=== PATIENT | female | born 1970 | race Caucasian/White ===

== ENCOUNTER 2017-04-07 20:34 | Emergency (ER) | payer MEDICAID ==
[2017-04-07 21:18] LABS: BASOPHILS 0.3 % (0-2); EOSINOPHILS 1.1 % (0-7); HEMATOCRIT 45.5 % (36.0-48.0); HEMOGLOBIN 15.1 g/dL (12-16); IMMATURE GRANULOCYTES 0.2 % (0-5); MCH 30.4 pg (26.0-34.0); MCHC 33.2 g/dL (31.0-37.0); MCV 91.5 fL (80.0-100.0); MEAN PLATELET VOLUME 12.6 fL (7.4-10.4); MONOCYTES 6.3 % (2-11); NEUTROPHILS 73.1 % (40-80); PLATELET COUNT 224 10x3/uL (130-400); RBC 4.97 10x6/uL (4.00-5.40); RDW 14.8 % (11.5-14.5); WBC 14.9 10x3/uL (4.8-10.8)
[2017-04-07 21:38] LABS: ALBUMIN 3.6 g/dL (3.4-5.0); ALKALINE PHOSPHATASE 96 U/L (46-116); ALT (SGPT) 37 U/L (10-68); CALC OSMOLALITY 276 mosm/kg (275-300); CALCIUM 8.2 mg/dL (8.5-10.1); CARBON DIOXIDE 22.4 mmol/L (21.0-32.0); CHLORIDE - SERUM 104 mmol/L (98-107); CREATININE - SERUM 0.7 mg/dL (0.6-1.3); GLUCOSE 102 mg/dL (74-106); POTASSIUM - SERUM 3.3 mmol/L (3.5-5.1); PROTEIN - SERUM 7.4 g/dL (6.4-8.2); SODIUM 140 mmol/L (136-145); UREA NITROGEN 6 mg/dL (7-18); eGFR NON AFRICAN AMERICAN > 90 mL/min (90-120)
[2017-04-07 21:41] LABS: BILIRUBIN - TOTAL 0.09 mg/dL (0.2-1.3)
[2017-04-07 22:06] LABS: MAGNESIUM - SERUM 1.8 mg/dL (1.8-2.4)
== END 2017-04-08 07:35 | disposition home or self-care (01) ==
LOC: D.ER 20:34
PROVIDERS: Emergency Medicine
DX: R45.851 Suicidal ideations (principal)

== ENCOUNTER 2018-07-06 08:59 | Emergency (ER) | payer MEDICAID ==
[~2018-07-06] VITALS: Ht 170.2 cm; Wt 65.9 kg
[2018-07-06 09:03] VITALS: Ht 170.2 cm; Wt 65.9 kg
[2018-07-06] MEDS ORDERED: PLAVIX75 MG PO (09:05)
[2018-07-06] MEDS ORDERED: SEROQUEL50 MG PO (09:05)
[2018-07-06] MEDS ORDERED: ELIQUIS5 MG PO (09:05)
[2018-07-06] MEDS ORDERED: HYDROCODON-ACE1 EA10 PO (09:06)
[2018-07-06] MEDS ORDERED: TAMIFLU75 MG PO (09:22)
[2018-07-06 09:44] VITALS: BP 113/79
== END 2018-07-06 09:42 | disposition home or self-care (01) ==
LOC: D.ER 08:59
DX: J11.1 Influenza due to unidentified influenza virus with other respiratory manifestations (principal); M79.18 Myalgia, other site

== ENCOUNTER 2018-07-17 18:41 | Emergency (ER) | payer MEDICAID ==
[~2018-07-17] VITALS: Ht 170.2 cm; Wt 69.5 kg
[~2018-07-17 18:41] MED LIST: ELIQUIS5 MG PO; HYDROCODON-ACE1 EA10 PO; PLAVIX75 MG PO; SEROQUEL50 MG PO; TAMIFLU75 MG PO
[2018-07-17 18:45] VITALS: Ht 170.2 cm; Wt 69.5 kg
[2018-07-17] MEDS ORDERED: CLEOCIN HCL300 MG PO (20:22)
[2018-07-17 20:32] VITALS: BP 97/54
== END 2018-07-17 20:33 | disposition home or self-care (01) ==
LOC: D.ER 18:41
DX: L76.82 Other postprocedural complications of skin and subcutaneous tissue (principal); L03.031 Cellulitis of right toe

== ENCOUNTER 2018-11-24 14:42 | Emergency (ER) | payer MEDICARE ==
[~2018-11-24] VITALS: Ht 170.2 cm; Wt 61.1 kg
[~2018-11-24 14:42] MED LIST changes: +CLEOCIN HCL300 MG PO
[2018-11-24 14:48] VITALS: Ht 170.2 cm; Wt 61.1 kg
--- NOTE | 2018-11-24 16:23 | NUR ---
PT REFUSED ASSESSMENT. PT IS VERY ARGUMENTATIVE AND REFUSES TO LISTEN TO EDUCATION. ATTENDING NOTIFIED.
[2018-11-24 17:16] LABS: BASOPHILS 0.5 % (0-2); EOSINOPHILS 3.7 % (0-7); HEMATOCRIT 45.9 % (36.0-48.0); HEMOGLOBIN 15.3 g/dL (12-16); LYMPHOCYTES 43.7 % (15-50); MCH 27.9 pg (26.0-34.0); MCHC 33.3 g/dL (31.0-37.0); MCV 83.6 fL (80.0-100.0); MEAN PLATELET VOLUME 11.4 fL (7.4-10.4); NEUTROPHILS 47.1 % (40-80); RBC 5.49 10x6/uL (4.00-5.40); RDW 17.7 % (11.5-14.5); WBC 7.8 10x3/uL (4.8-10.8)
[2018-11-24 17:32] LABS: PLATELET COUNT 269 10x3/uL (130-400)
[2018-11-24 18:04] LABS: ALBUMIN 3.9 g/dL (3.4-5.0); ALKALINE PHOSPHATASE 104 U/L (46-116); ALT (SGPT) 19 U/L (10-68); BILIRUBIN - TOTAL 0.22 mg/dL (0.2-1.3); CALC OSMOLALITY 277 mosm/kg (275-300); CALCIUM 8.5 mg/dL (8.5-10.1); CARBON DIOXIDE 21.2 mmol/L (21.0-32.0); CHLORIDE - SERUM 103 mmol/L (98-107); CREATININE - SERUM 0.7 mg/dL (0.6-1.3); GLUCOSE 71 mg/dL (74-106); MAGNESIUM - SERUM 1.8 mg/dL (1.8-2.4); PROTEIN - SERUM 7.4 g/dL (6.4-8.2); SODIUM 141 mmol/L (136-145); UREA NITROGEN 10 mg/dL (7-18); eGFR NON AFRICAN AMERICAN > 90 mL/min (90-120)
[2018-11-24 18:08] LABS: UDS - AMPHET NEGATIVE QUAL (NEGATIVE); UDS - BARB NEGATIVE QUAL (NEGATIVE); UDS - BENZO NEGATIVE QUAL (NEGATIVE); UDS - COCAINE NEGATIVE QUAL (NEGATIVE); UDS - OPIATE NEGATIVE QUAL (NEGATIVE); UDS - PCP NEGATIVE QUAL (NEGATIVE); UDS - THC POSITIVE QUAL (NEGATIVE)
[2018-11-24 18:15] LABS: APPEARANCE CLEAR (CLEAR); BILIRUBIN NEGATIVE (NEGATIVE); COLOR YELLOW (YELLOW); GLUCOSE NEGATIVE (NEGATIVE); KETONE SMALL mg/dL (NEGATIVE); NITRITE NEGATIVE (NEGATIVE); PROTEIN NEGATIVE (NEGATIVE); UROBILINOGEN NORMAL (NORMAL)
[2018-11-24 18:17] LABS: BACTERIA MODERATE /hpf (NONE SEEN); EPITHELIAL CELLS 0-5 /hpf (0-5); RED CELLS - URINE 0-5 /hpf (0-5); WHITE CELLS - URINE 0-5 /hpf (0-5)
--- NOTE | 2018-11-24 19:23 | NUR ---
DR. HENSON NOTIFIED AND REVIEWED PT'S BEHAVIOR AND ASSESSMENT RESULTS. PT IS A LOW RISK PER DR. HENSON. DR. HENSON STATED TO GIVE RESOURCES TO PT AT TIME OF DISCHARGE. NO FURTHER ORDERS AT THIS TIME. RESOURCES REVIEWED WITH PT AND SHE VERBALIZED UNDERSTANDING.
--- NOTE | 2018-11-24 23:57 | NUR ---
DR MARTELL NOTIFIED AND SITTER ORDERED, SITTER AT BEDSIDE, NOTIFIED CHARGE NURSE AND ATTENDING IN REGARDS TO ASSESSMENT FINDINGS, RESOURCES GIVEN TO PT AND SAFETY PLAN INITIATED.
[2018-11-25 02:43] VITALS: BP 110/70
== END 2018-11-25 02:43 | disposition short-term general hospital (02) ==
LOC: D.ER 14:42
PROVIDERS: Emergency Medicine
DX: T43.212A Poisoning by selective serotonin and norepinephrine reuptake inhibitors, intentional self-harm, initial encounter (principal); F10.10 Alcohol abuse, uncomplicated; R45.851 Suicidal ideations; N39.0 Urinary tract infection, site not specified; F17.210 Nicotine dependence, cigarettes, uncomplicated; J44.9 Chronic obstructive pulmonary disease, unspecified; F32.9 Major depressive disorder, single episode, unspecified

== ENCOUNTER 2019-06-09 16:56 | Emergency (ER) | payer MEDICARE, MEDICAID ==
[~2019-06-09] VITALS: Ht 170.2 cm; Wt 65.9 kg
[2019-06-09 16:58] VITALS: Ht 170.2 cm; Wt 65.9 kg
[2019-06-09 17:25] LABS: BASOPHILS 0.5 % (0-2); EOSINOPHILS 3.6 % (0-7); HEMATOCRIT 32.2 % (36.0-48.0); HEMOGLOBIN 10.1 g/dL (12-16); IMMATURE GRANULOCYTES 0.2 % (0-5); LYMPHOCYTES 23.8 % (15-50); MCH 29.2 pg (26.0-34.0); MCHC 31.4 g/dL (31.0-37.0); MCV 93.1 fL (80.0-100.0); MEAN PLATELET VOLUME 10.6 fL (7.4-10.4); MONOCYTES 7.7 % (2-11); NEUTROPHILS 64.2 % (40-80); RBC 3.46 10x6/uL (4.00-5.40); RDW 14.1 % (11.5-14.5); WBC 10.6 10x3/uL (4.8-10.8)
[2019-06-09 17:26] LABS: PLATELET COUNT 548 10x3/uL (130-400)
[2019-06-09 17:37] LABS: CALC OSMOLALITY 279 mosm/kg (275-300); CALCIUM 8.9 mg/dL (8.5-10.1); CARBON DIOXIDE 27.9 mmol/L (21.0-32.0); CHLORIDE - SERUM 106 mmol/L (98-107); CREATININE - SERUM 0.8 mg/dL (0.6-1.3); GLUCOSE 89 mg/dL (74-106); POTASSIUM - SERUM 3.9 mmol/L (3.5-5.1); SODIUM 142 mmol/L (136-145); UREA NITROGEN 8 mg/dL (7-18); eGFR NON AFRICAN AMERICAN 82 mL/min (90-120)
[2019-06-09 17:43] LABS: ALBUMIN 3.2 g/dL (3.4-5.0); ALKALINE PHOSPHATASE 80 U/L (30-120); ALT (SGPT) 25 U/L (10-68); BILIRUBIN - TOTAL 0.17 mg/dL (0.2-1.3); C-REACTIVE PROTEIN 2.6 mg/dL (0.0-0.9); PROTEIN - SERUM 7.4 g/dL (6.4-8.2)
[2019-06-09 20:00] VITALS: BP 115/65
== END 2019-06-09 20:00 | disposition other institution (70) ==
LOC: D.ER 16:56
PROVIDERS: Family Medicine
DX: L03.115 Cellulitis of right lower limb (principal); Z89.511 Acquired absence of right leg below knee; T81.9XXA Unspecified complication of procedure, initial encounter; J44.9 Chronic obstructive pulmonary disease, unspecified

== ENCOUNTER 2020-02-07 16:13 | Emergency (ER) | payer MEDICARE, MEDICAID ==
[~2020-02-07] VITALS: Ht 170.2 cm; Wt 63.6 kg
[2020-02-07 16:16] VITALS: Ht 170.2 cm; Wt 63.6 kg
[2020-02-07 17:17] LABS: BASOPHILS 0.6 % (0-2); EOSINOPHILS 1.6 % (0-7); HEMATOCRIT 47.4 % (36.0-48.0); HEMOGLOBIN 15.9 g/dL (12-16); IMMATURE GRANULOCYTES 0.3 % (0-5); LYMPHOCYTES 28.6 % (15-50); MCH 29.6 pg (26.0-34.0); MCHC 33.5 g/dL (31.0-37.0); MCV 88.3 fL (80.0-100.0); MEAN PLATELET VOLUME 12.1 fL (7.4-10.4); MONOCYTES 7.4 % (2-11); NEUTROPHILS 61.5 % (40-80); RBC 5.37 10x6/uL (4.00-5.40); RDW 14.7 % (11.5-14.5); WBC 12.2 10x3/uL (4.8-10.8)
[2020-02-07 17:23] LABS: BACTERIA MODERATE HPF (NONE SEEN); BILIRUBIN NEGATIVE (NEGATIVE); EPITHELIAL CELLS 0-5 /hpf (0-5); KETONE NEGATIVE (NEGATIVE); NITRITE NEGATIVE (NEGATIVE); UROBILINOGEN NORMAL mg/dL (< 2)
[2020-02-07 17:24] LABS: PLATELET COUNT 227 10x3/uL (130-400)
[2020-02-07 17:29] LABS: CALC OSMOLALITY 277 mosm/kg (275-300); CALCIUM 9.3 mg/dL (8.5-10.1); CARBON DIOXIDE 24.9 mmol/L (21.0-32.0); CHLORIDE - SERUM 103 mmol/L (98-107); CREATININE - SERUM 0.8 mg/dL (0.6-1.3); GLUCOSE 90 mg/dL (74-106); SODIUM 139 mmol/L (136-145); UREA NITROGEN 12 mg/dL (7-18); eGFR NON AFRICAN AMERICAN 81 mL/min (90-120)
[2020-02-07 17:34] LABS: UDS - AMPHET NEGATIVE QUAL (NEGATIVE); UDS - BARB NEGATIVE QUAL (NEGATIVE); UDS - BENZO NEGATIVE QUAL (NEGATIVE); UDS - COCAINE NEGATIVE QUAL (NEGATIVE); UDS - OPIATE NEGATIVE QUAL (NEGATIVE); UDS - PCP NEGATIVE QUAL (NEGATIVE); UDS - THC POSITIVE QUAL (NEGATIVE)
[2020-02-07 17:39] LABS: ALBUMIN 4.1 g/dL (3.4-5.0); ALKALINE PHOSPHATASE 115 U/L (30-120); ALT (SGPT) 19 U/L (10-68); AMYLASE - SERUM 75 U/L (25-115); BILIRUBIN - TOTAL 0.16 mg/dL (0.2-1.3); LIPASE 131 U/L (73-393); PROTEIN - SERUM 8.5 g/dL (6.4-8.2); TROPONIN-I < 0.017 ng/mL (0.000-0.060)
[2020-02-07] MEDS ORDERED: HYDROCODON-ACE1 EAC7 PO (18:30)
[2020-02-07] MEDS ORDERED: BACTRIM DS TAB1 EAC1 PO (18:30)
[2020-02-07 18:44] VITALS: BP 119/76
== END 2020-02-07 18:46 | disposition home or self-care (01) ==
LOC: D.ER 16:13
PROVIDERS: Emergency Medicine
DX: N12 Tubulo-interstitial nephritis, not specified as acute or chronic (principal); J44.9 Chronic obstructive pulmonary disease, unspecified

== ENCOUNTER 2020-07-12 15:58 | Inpatient (IN) | payer MEDICARE, MEDICAID ==
[~2020-07-12] VITALS: Ht 170.2 cm; Wt 65.4 kg
--- NOTE | ~2020-07-12 | HEMODYNAMI ---
PATIENT:LEIDA CASEY MEDICAL RECORD: [id number] : 74 [id number] ADMISSION DATE: 07/12/20 Generatedon:110:28 Patient name: LEIDA CASEY Patient #: [id number] SSN: D OB: 1970 Date of study: 07/13/2020 Page: Of Hemodynamic Procedure Report Patient Data Patient Demographics Procedure consent was obtained First Name: LEIDA Gender: Female Last Name: CARMELA : 1970 Middle Initial: S Age: 49 year(s) Patient #: [id number] Race: Unknown Additional ID: [id number] Contact details Address: [address] [place] [address] TRAIL State: [place] City: [facility] Zip code: [address] Past Medical History Allergies Allergen Reaction Date Comments Reported Other allergy 07/13/2020 MORPHINE, CODEINE Admission Admission Data Admission Date: 07/12/2020 Admission Time: 19:59 Room #: D.2128 Lab Results Lab Result Date: 07/13/2020 Lab Result Time: 0:00 Biochemistry Name Units Result Min Max BUN mg/dl 11 --(-*--)-- 7 18 Creatinine mg/dl 0.7 --(*---)-- 0.6 1.3 eGFR ml/min 90 --(*---)-- 90 120 NONAFRICAN CBC Name Units Result Min Max Hematocrit % 35.5 *-(----)-- 42 54 Hemoglobin g/dl 11.8 *-(----)-- 13.5 17.5 Procedure Procedure Types Cath Procedure Diagnostic Procedure [facility] w/Coronaries Procedure Description Procedure Date Procedure Date: 07/13/2020 Procedure Start Time: 10:00 Procedure End Time: 10:25 Procedure Staff Name Function Alvaro Ornelas MD Performing Physician Carissa Alcazar RT Monitor Cherrie Gaffney RT Scrub Lorrie Leo RN Nurse Darci Quinones CRNA Additional personnel Procedure Data Cath Procedure Fluoroscopy Diagnostic fluoroscopy Total fluoroscopy Time: 1.9 time: 1.9 min min Diagnostic fluoroscopy Total fluoroscopy dose: 276 dose: 276 mGy mGy Contrast Material Contrast Material Type Amount (ml) Isovue 300 54 Entry Location Entry Primary Successful Side Size Upsize Upsize Entry Closure Succes sful Closure Location (Fr) 1 (Fr) 2 (Fr) Remarks Device Remarks Femoral Left 6 Fr Exoseal artery Short Estimated blood loss: 5 ml Diagnostic catheters Device Type Used For End Catheter Placement MULTIPACK JL 4.0 5Fr Procedure catheter MULTIPACK 3DRC 5Fr Procedure catheter MULTIPACK Pigtail 5 Fr Procedure catheter Procedure Complications No complications Procedure Medications Medication Administration Route Dosage Oxygen etCO2 Nasal cannula 2 l/min Lidocaine 2% added to field 20 Heparin Flush Bag added to field 2 bags (1000units/500ml NS) 0.9% NaCl I.V. 100 ml/hr Versed I.V. 2 mg Fentanyl I.V. 100 mcg Versed I.V. 2 mg Fentanyl I.V. 100 mcg Versed I.V. 2 mg Fentanyl I.V. 100 mcg Versed I.V. 2 mg Benadryl I.V. 50 mg Refer to Anesthesia Notes for Sedation Medications Hemodynamics Rest HGB: 11.8 (g/dl) Heart Rate: 46 (bpm) Pressure Samples Time Site Value (mmHg) Purpose Heart Use Rate(bpm) 10:18 LV 90/9,18 Snapshot 66 Gradients Valve Time Site Site Mean SEP/DFP Peak To Heart Use 1 2 (mmHg) (sec/min) Peak Rate (mmHg) (bpm) Aortic 10:19 LV AO 65 Snapshots Pre Cath Intra NCS Post Cath Vital Signs Time Heart Resp SPO2 etCO2 NIBP Rhythm Pain Sedation Rate (ipm) (%) (mmHg) (mmHg) Status Level (bpm) 9:48:26 50 17 99 27 104/46(67) NSR 0 (11) 10(A) , No pain 9:53:09 51 29 92 26.3 121/48(72) NSR 0 (11) 10(A) , No pain 9:57:15 49 19 87 24.7 110/95(99) NSR 0 (11) 10(A) , No pain 10:02:20 59 22 96 26.3 84/40(55) NSR 0 (11) 10(A) , No pain 10:07:31 56 18 92 26.3 88/63(83) NSR 0 (11) 10(A) , No pain 10:11:33 61 20 96 19.5 86/55(70) NSR 0 (11) 10(A) , No pain 10:15:37 62 19 98 24 90/52(70) NSR 0 (11) 10(A) , No pain 10:19:43 65 18 98 29.3 89/50(68) NSR 0 (11) 10(A) , No pain 10:23:49 59 15 98 29.3 86/47(69) NSR 0 (11) 10(A) , No pain Medications Time Medication Route Dose Verified Delivered Reason Notes Eff ectiveness by by 9:50:27 Benadryl I.V. 50 mg Alvaro Buffie used for Johnson Leo RN procedure 9:50:48 Oxygen etCO2 2 Alvaro Buffie used for Nasal l/min Johnson Leo RN procedure cannula 9:51:46 Lidocaine 2% added 20ml Alvaro Alvaro for local to vial Johnson Ornelas MD anesthetic field 9:51:52 Heparin Flush added 2 Alvaro Alvaro used for Bag to bags Johnson Ornelas MD procedure (1000units/500ml field NS) 9:51:59 0.9% NaCl I.V. 100 Alvaro Buffie Per ml/hr Johnson Leo RN physician 9:57:58 Versed I.V. 2 mg Alvaro Buffie for Johnson Leo RN sedation 9:58:03 Fentanyl I.V. 100 Alvaro Buffie for mcg Johnson Leo RN sedation 10:03:03 Versed I.V. 2 mg Alvaro Buffie for Johnson Leo RN sedation 10:03:07 Fentanyl I.V. 100 Alvaro Buffie for mcg Johnson Leo RN sedation 10:07:29 Versed I.V. 2 mg Alvaro Buffie for Johnson Leo RN sedation 10:07:32 Fentanyl I.V. 100 Alvaro Buffie for mcg Johnson Leo RN sedation 10:10:05 Versed I.V. 2 mg Alvaro Buffie for Johnson Leo RN sedation 10:15:07 Refer to Alvaro Buffie Anesthesia Notes Ornelas MD Leo RN for Sedation Medications Procedure Log Time Note 9:21:11 Informed consent obtained and on chart 9:21:44 Procedure Status Urgent Heart Cath (IP). 9:21:45 Time tracking: Regular hours (M-F 7:00 - 5:00) 9:21:48 Plan of Care:Hemodynamics will remain stable., Cardiac rhythm will remain stable., Comfort level will be maintained., Respiratory function will remain adequate., Patient/ family verbilizes understanding of procedure., Procedure tolerated without complication., Recovers from procedure without complications.. 9:21:51 H&P Date Dictated: 07/13/2020 ER History on chart.. 9:26:39 Patient allergic to Other allergyMORPHINE, CODEINE 9:29:48 Carissa Alcazar RT(R) sent for patient. Start room use. 9:47:14 Patient received from OrbFlex II to CCL 1 Alert and oriented. Tansferred to table in Supine position. 9:47:16 Warm blankets applied, and hever hugger turned on for patient comfort. 9:47:16 Correct patient and procedure confirmed by team. 9:47:17 ECG and BP/O2 sat monitors applied to patient. 9:47:19 Vital chart was started 9:47:22 Baseline sample Acquired. 9:47:25 Rhythm: sinus bradycardia 9:47:26 Full Disclosure recording started 9:47:26 Pre-procedure instructions explained to patient. 9:47:27 Pre-op teaching completed and patient verbalized understanding. 9:47:28 Family unavailable. 9:47:32 Patient NPO since Midnight. 9:47:35 Is patient on blood thinner?Yes 9:47:39 ACC The patient was administered the following blood thiners within the last 24 hours: ACCPlavix, Eliquis 9:47:54 Patient not . Patient has had hysterectomy. 9:47:56 Previous problem with sedation/anesthesia? No ? 9:47:57 Snore? Yes 9:47:58 Sleep apnea? No 9:47:59 Deviated septum? No 9:47:59 Opens mouth fully? Yes 9:48:00 Sticks out tongue? Yes 9:48:07 Airway obstruction? Yes ASTHMA, COPD 9:48:10 Pre procedure: right dorsailis pedis pulse 1+ Palpable, but thready & weak; easily obliterated 9:48:11 Dentures? No ? 9:48:21 IV patent on arrival in right antecubital with 0.9% NaCl at [facility]. 9:48:58 Lab Result : BUN 11 mg/dl 9:48:58 Lab Result : eGFR NONAFRICAN 90 ml/min 9:48:58 Lab Result : Creatinine 0.7 mg/dl 9:48:58 Lab Result : Hemoglobin 11.8 g/dl 9:48:58 Lab Result : Hematocrit 35.5 % 9:49:04 Lab results completed and on chart. 9:49:09 Right groin area was prepped with chlora-prep and draped in sterile fashion 9:49:11 Alarms reviewed by R. N. 9:49:11 Sharps counted by scrub and verified by R.N. 9:49:13 Use device set Femoral Dx 9:49:14 ACIST Syringe (78796) opened to sterile field. 9:49:15 Bag Decanter (2002S) opened to sterile field. 9:49:16 ACIST Hand Control (05504) opened to sterile field. 9:49:16 ACIST Manifold (91456) opened to sterile field. 9:49:18 Tegaderm 4 x 4 (1626W) opened to sterile field. 9:49:19 Medline Cath Pack ([id number]) opened to sterile field. 9:49:20 DIAGNOSTIC Multipack 5Fr catheter set (TG1612) opened to sterile field. 9:49:20 SHEATH 5FR [place] (IXP588) opened to sterile field. 9:49:21 EMERALD Guide Wire (057-226) opened to sterile field. 9:50:27 Benadryl 50 mg I.V. was administered by Lorrie Leo RN; used for procedure; Verbal order read back and verified. 9:50:48 Oxygen 2 l/min etCO2 Nasal cannula was administered by Lorrie Leo RN; used for procedure; Verbal order read back and verified. 9:51:46 Lidocaine 2% 20ml vial added to field was administered by Alvaro Ornelas MD; for local anesthetic; Verbal order read back and verified. 9:51:52 Heparin Flush Bag (1000units/500ml NS) 2 bags added to field was administered by Alvaro Ornelas MD; used for procedure; Verbal order read back and verified. 9:51:59 0.9% NaCl 100 ml/hr I.V. was administered by Lorrie Leo RN; Per physician; Verbal order read back and verified. 9:56:06 --------ALL STOP TIME OUT------ 9:56:07 Final Timeout: patient, procedure, and site verified with staff and physician. All members of the team are in agreement. 9:56:08 Right groin site verified by team. 9:56:10 Fire Safety Assessment: A--An alcohol-based skin anteseptic being used preoperatively., C--Open oxygen or nitrous oxide is being used., D--An ESU, laser, or fiber-optic light is being used. 9:56:12 Physical assessment completed. ASA score P 3 - A patient with severe systemic disease as per Alvaro Ornelas MD. 9:56:14 1) 90+ Normal kidney functon but urine findings or structural abnormalities or genetic trait point to kidney disease. 9:56:16 Maximum allowable contrast dose (3.7 X eGFR X 0.75)250 ml. 9:56:19 Sedation plan: IV Moderate Sedation Medication:Versed, Fentanyl 9:57:45 Zero performed for pressure channel P1 9:57:58 Versed 2 mg I.V. was administered by Lorrie Leo RN; for sedation; Verbal order read back and verified. 9:58:03 Fentanyl 100 mcg I.V. was administered by Lorrie Leo RN; for sedation; Verbal order read back and verified. 9:59:58 Procedure started. 10:00:41 Local anesthetic to right femoral artery with Lidocaine 2% by Alvaro Ornelas MD.INITIAL ACCESS ONLY 10:03:03 Versed 2 mg I.V. was administered by Lorrie Leo RN; for sedation; Verbal order read back and verified. 10:03:07 Fentanyl 100 mcg I.V. was administered by Lorrie Leo RN; for sedation; Verbal order read back and verified. 10:05:[address] ORNELAS. UNABLE TO SEDATE DURING START OF PROCEDURE 10:07:29 Versed 2 mg I.V. was administered by Lorrie Leo RN; for sedation; Verbal order read back and verified. 10:07:32 Fentanyl 100 mcg I.V. was administered by Lorrie Leo RN; for sedation; Verbal order read back and verified. 10:10:05 Versed 2 mg I.V. was administered by Lorrie Leo RN; for sedation; Verbal order read back and verified. 10:12:36 Darci Quinones CRNA present and monitoring patient for TIVA. 10:13:14 UNABLE TO GET RIGHT GROIN ACCESS 10:13:24 Local anesthetic to left femerol artery with Lidocaine 2% by Alvaro Ornelas MD.ADDITIONAL ACCESS 10:13:33 A 6 Fr Short sheath was inserted into the Left Femoral artery 10:14:16 A MULTIPACK JL 4.0 5Fr catheter was advanced over the wire and used for Procedure. 10:15:01 LCA angiography performed. 10:15:07 Refer to Anesthesia Notes for Sedation Medications was administered by Lorrie Leo RN; ; Verbal order read back and verified. 10:15:43 Catheter exchanged over wire. 10:15:56 A MULTIPACK 3DRC 5Fr catheter was advanced over the wire and used for Procedure. 10:17:53 RCA angiography performed. 10:17:55 Catheter exchanged over wire. 10:18:06 A MULTIPACK Pigtail 5 Fr catheter was advanced over the wire and used for Procedure. 10:18:34 LV gram done using BAKER 10:18:37 Injector settings: Ml/sec: 10, Volume: 20, 10:18:51 LV hemodynamics recorded. 10:19:09 EF : 50 % 10:20:39 Catheter removed. 10:20:41 EXOSEAL 5Fr (EX500) opened to sterile field. 10:21:16 Sheath removed intact; hemostasis achieved with Exoseal to the Left Femoral artery. 10:21:46 Procedure ended.(Physican Out) 10:22:47 Fluoroscopy time 01.90 minutes. 10:22:52 Fluoroscopy dose: 276 mGy 10:22:52 Flurop Dose total: 276 10:23:02 Dose Area Product 80372 mGy/cm. 10:23:11 Contrast amount:Isovue 300 54ml. 10:23:13 Maximum allowable dose exceeded? No. 10:23:14 Sharps counted by scrub and verified by R.N. 10:23:33 Post-op/insertion site Left Femoral artery dressed using a 4 x 4 and Tegaderm. 10:23:36 Post-procedure physical assessment completed. ASA score P 2 - A patient with mild systemic disease as per Alvaro Ornelas MD. 10:23:45 Post procedure rhythm: sinus bradycardia 10:23:48 Estimated blood loss: 5 ml 10:23:49 Post procedure instruction explained to patient.Patient verbalizes understanding. 10:23:49 Patient needs reinforcement of post procedure teaching. 10:24:53 Procedure and supply charges have been captured, reviewed, submitted and are correct. 10:24:56 Procedure Complication : No complications 10:24:58 Vital chart was stopped 10:25:00 [facility] Findings: mild to moderate CAD (<70%) 10:25:01 Operative report dictated upon procedure completion. 10:25:01 See physician's report for complete and final results. 10:25:04 Report given to Med II. 10:25:07 Patient transfered to Med II with Bed. 10:25:09 Procedure ended. 10:25:09 Full Disclosure recording stopped 10:25:13 End room use (Document Last) 10:25:13 End room use (Document Last) 10:27:31 End room use (Document Last) 10:28:06 End room use (Document Last) Device Usage Item Name Manufacture Quantity Catalog Hospital Part Current Minimal L ot# / Number Charge Number Stock Stock Serial# Code ACIST Acist 1 18916 [id number] 977547 [id number] 20 Syringe Medical (58599) Systems Inc Bag Microtek 1 827066 10648 538507 5 Decanter Medical Inc. () ACIST Hand Acist 1 62153 902327 623841 831230 5 Control Medical (02592) Systems Inc ACIST Acist 1 08339 194854 310784 675663 5 Manifold Medical (75673) Systems Inc Tegaderm 4 3M 1 1626W 643250 528141 384066 5 x 4 (1626W) Medline Medline 1 [id number] 673920 91106 195943 5 Cath Pack ([id number]) DIAGNOSTIC Cardinal 1 FA1179 643759 30116 198774 30 Multipack Playboox 5Fr catheter set (JN2807) SHEATH 5FR Terumo 1 IKT776 763087 305616 625862 5 [place] (VNO941) EMERALD Cardinal 1 502-455 430891 276078 140894 5 Guide Wire Health (502-981) MULTIPACK Cardinal 1 898699 5 JL 4.0 5Fr Health catheter MULTIPACK Cardinal 1 589546 5 3DRC 5Fr Health catheter MULTIPACK Cardinal 1 158102 5 Pigtail 5 Health Fr catheter EXOSEAL 5Fr Cardinal 1 EX500 079975 008894 336062 10 (EX500) Health Signature Audit [place] Stage Time Signature Unsigned Intra-Procedure 07/13/2020 Carissa Alcazar 10:27:31 AM RT(R) Intra-Procedure 07/13/2020 Lorrie Leo RN 10:28:06 AM Intra-Procedure 07/13/2020 Alvaro Ornelas MD 10:28:37 AM [id number] [place] [address]
[~2020-07-12 15:58] MED LIST changes: +BACTRIM DS TAB1 EAC1 PO; +HYDROCODON-ACE1 EAC7 PO
[2020-07-12 16:50] LABS: BASOPHILS 0.2 % (0-2); EOSINOPHILS 0 % (0-7); HEMATOCRIT 40.5 % (36.0-48.0); HEMOGLOBIN 13.5 g/dL (12-16); IMMATURE GRANULOCYTES 0.3 % (0-5); LYMPHOCYTE ABS# 1.36 10x3/uL (1.18-3.74); LYMPHOCYTES 11.3 % (15-50); MCH 30.5 pg (26.0-34.0); MCHC 33.3 g/dL (31.0-37.0); MCV 91.6 fL (80.0-100.0); MEAN PLATELET VOLUME 12.2 fL (7.4-10.4); MONOCYTES 10.7 % (2-11); NEUTROPHILS 77.5 % (40-80); PLATELET COUNT 231 10x3/uL (130-400); RBC 4.42 10x6/uL (4.00-5.40); RDW 15.4 % (11.5-14.5)
[2020-07-12 17:26] LABS: CALC OSMOLALITY 276 mosm/kg (275-300); CALCIUM 9.5 mg/dL (8.5-10.1); CARBON DIOXIDE 20.5 mmol/L (21.0-32.0); CHLORIDE - SERUM 100 mmol/L (98-107); CREATININE - SERUM 0.8 mg/dL (0.6-1.3); GLUCOSE 111 mg/dL (74-106); POTASSIUM - SERUM 3.5 mmol/L (3.5-5.1); SODIUM 138 mmol/L (136-145); UREA NITROGEN 12 mg/dL (7-18); eGFR NON AFRICAN AMERICAN 81 mL/min (90-120)
[2020-07-12 17:47] LABS: ALBUMIN 4.3 g/dL (3.4-5.0); ALKALINE PHOSPHATASE 104 U/L (30-120); ALT (SGPT) 20 U/L (10-68); AMYLASE - SERUM 43 U/L (25-115); BILIRUBIN - TOTAL 0.66 mg/dL (0.2-1.3); PROTEIN - SERUM 7.7 g/dL (6.4-8.2)
--- NOTE | 2020-07-12 18:21 | NUR ---
PATIENT VERY DIFFICULT AT THIS TIME AND NOT BEING COOPERATIVE. PATIENT ROLLING AROUND ON BED AND REFUSES TO COOPERATE FOR IV. IV FINALLY ESTABLISHED VIA ULTRASOUND TO RIGHT AC, 18 GAUGE, FLUIDS RUNNING AND PAIN MEDS GIVEN. PATIENT PROVIDED WITH WARM BLANKETS. PATIENT UNCOOPERATIVE FOR EKG AND UNABLE TO GET A GOOD READING DUE TO PATIENT WON'T BE STILL. CALL IBRAHIM IN REACH, SIDE RAILS UP X 2, BED IN LOW POSITION.
[2020-07-12 18:24] LABS: LIPASE 37 U/L (73-393)
[2020-07-12 18:25] LABS: TROPONIN-I 1.404 ng/mL (0.000-0.060)
[2020-07-12 18:33] LABS: BILIRUBIN NEGATIVE (NEGATIVE); KETONE LARGE mg/dL (NEGATIVE); NITRITE NEGATIVE (NEGATIVE); UROBILINOGEN NORMAL mg/dL (< 2)
[2020-07-12 18:39] LABS: UDS - AMPHET NEGATIVE QUAL (NEGATIVE); UDS - BARB NEGATIVE QUAL (NEGATIVE); UDS - BENZO NEGATIVE QUAL (NEGATIVE); UDS - COCAINE NEGATIVE QUAL (NEGATIVE); UDS - OPIATE NEGATIVE QUAL (NEGATIVE); UDS - PCP NEGATIVE QUAL (NEGATIVE); UDS - THC POSITIVE QUAL (NEGATIVE)
[2020-07-12 19:47] LABS: CKMB 9.9 U/L (0.0-3.6); CREATINE KINASE 303 UL (21-215)
[2020-07-12 21:10] VITALS: BP 136/74
--- NOTE | 2020-07-12 21:22 | NUR ---
PT RECEIVED TO ROOM 2127 AWAKE, ALERT VERY POOR MARTIN, STATED ELA WHEN ASKED WHO HER PCP IS BUT IS ABLE TO REPORT SHE IS ON "HYDRO 10S". SHE REPORTS N/V TODAY AND JUST NOT FEELIGN WELL. SHE REPORTS CHRONIC BACK PAIN AND PALUMBO AT THSI TIME. SHE HAS R BKA AND HAS A PROSTHESIS SHE AMBULATED TO BR TO VOID WITH PROSTHESIS WITHOU ASSIST. NO ACUTE ISSUES AT THIS TIME. VSS WILL CONTINUE TO MONITOR
[2020-07-13 01:22] LABS: CKMB 13.2 U/L (0.0-3.6)
[2020-07-13 01:25] LABS: CREATINE KINASE 584 UL (21-215); TROPONIN-I 3.162 ng/mL (0.000-0.060)
[2020-07-13 04:33] VITALS: BP 140/90
[2020-07-13 05:53] LABS: BASOPHILS 0.1 % (0-2); EOSINOPHILS 0.9 % (0-7); HEMATOCRIT 35.5 % (36.0-48.0); HEMOGLOBIN 11.8 g/dL (12-16); IMMATURE GRANULOCYTES 0.1 % (0-5); LYMPHOCYTE ABS# 1.56 10x3/uL (1.18-3.74); LYMPHOCYTES 22.7 % (15-50); MCHC 33.2 g/dL (31.0-37.0); MCV 90.3 fL (80.0-100.0); MEAN PLATELET VOLUME 12.5 fL (7.4-10.4); MONOCYTES 12.8 % (2-11); NEUTROPHIL ABS# 4.34 10x3/uL (1.56-6.13); NEUTROPHILS 63.4 % (40-80); RBC 3.93 10x6/uL (4.00-5.40); RDW 15.4 % (11.5-14.5)
[2020-07-13 06:18] LABS: PLATELET COUNT 177 10x3/uL (130-400); WBC 6.9 10x3/uL (4.8-10.8)
[2020-07-13 06:25] LABS: ALKALINE PHOSPHATASE 78 U/L (30-120); ALT (SGPT) 17 U/L (10-68); BILIRUBIN - TOTAL 0.63 mg/dL (0.2-1.3); CALC OSMOLALITY 274 mosm/kg (275-300); CALCIUM 8.1 mg/dL (8.5-10.1); CARBON DIOXIDE 20.7 mmol/L (21.0-32.0); CHLORIDE - SERUM 103 mmol/L (98-107); CKMB 11.8 U/L (0.0-3.6); CREATININE - SERUM 0.7 mg/dL (0.6-1.3); GLUCOSE 104 mg/dL (74-106); PROTEIN - SERUM 6.4 g/dL (6.4-8.2); SODIUM 138 mmol/L (136-145); UREA NITROGEN 11 mg/dL (7-18); eGFR NON AFRICAN AMERICAN > 90 mL/min (90-120)
[2020-07-13 06:30] LABS: ALBUMIN 3.1 g/dL (3.4-5.0); CREATINE KINASE 772 UL (21-215); POTASSIUM - SERUM 2.9 mmol/L (3.5-5.1)
[2020-07-13 06:31] LABS: TROPONIN-I 3.201 ng/mL (0.000-0.060)
--- NOTE | 2020-07-13 06:48 | NUR ---
critical troponin called to Dr Guzman and [place] PALMA with Cardiology
[2020-07-13 08:48] VITALS: BP 86/50
[2020-07-13 08:58] VITALS: BP 91/41
[2020-07-13 09:08] LABS: INR 1.39 (0.85-1.17); PROTIME 15.8 SECONDS (11.6-15.0)
[2020-07-13 09:25] LABS: CHOL - HDL RATIO 2.6 ratio (2.3-4.1); LDL-HDL RATIO 1.3 ratio (1.5-3.5)
[2020-07-13 12:17] VITALS: BP 83/42
[2020-07-13 13:12] LABS: CKMB 14.5 U/L (0.0-3.6)
[2020-07-13 13:13] LABS: CREATINE KINASE 2082 UL (21-215)
[2020-07-13 13:15] LABS: TROPONIN-I 3.708 ng/mL (0.000-0.060)
[2020-07-13 14:03] VITALS: Ht 170.2 cm; Wt 65.4 kg
[2020-07-13 16:58] VITALS: BP 97/46
--- NOTE | 2020-07-13 19:30 | NUR ---
RECEIVED REPORT, WILL ASSUME CARE OF PT, TALKING ON PHONE, DENIES ANY NEEDS AT THIS TIME, BED IS LOW, SRX2, CALL LIGHT IN REACH, WILL CONTINUE PLAN OF CARE
[2020-07-13 20:29] VITALS: BP 105/58
[2020-07-14 00:46] VITALS: BP 125/60
--- NOTE | 2020-07-14 02:11 | NUR ---
I have reviewed this patient and I concur with the Shift Assessment completed by the Licensed Practical Nurse today this shift.
[2020-07-14 05:13] LABS: BASOPHILS 0.3 % (0-2); EOSINOPHILS 1.5 % (0-7); HEMATOCRIT 33.3 % (36.0-48.0); HEMOGLOBIN 10.9 g/dL (12-16); IMMATURE GRANULOCYTES 0.1 % (0-5); LYMPHOCYTES 32.7 % (15-50); MCH 29.9 pg (26.0-34.0); MCHC 32.7 g/dL (31.0-37.0); MCV 91.2 fL (80.0-100.0); MEAN PLATELET VOLUME 12.4 fL (7.4-10.4); MONOCYTES 11.4 % (2-11); NEUTROPHIL ABS# 3.63 10x3/uL (1.56-6.13); PLATELET COUNT 167 10x3/uL (130-400); RBC 3.65 10x6/uL (4.00-5.40); RDW 15.7 % (11.5-14.5); WBC 6.7 10x3/uL (4.8-10.8)
[2020-07-14 05:53] VITALS: BP 100/39
[2020-07-14 06:09] LABS: ALBUMIN 2.7 g/dL (3.4-5.0); ALKALINE PHOSPHATASE 61 U/L (30-120); ALT (SGPT) 20 U/L (10-68); BILIRUBIN - TOTAL 0.26 mg/dL (0.2-1.3); CALCIUM 7.8 mg/dL (8.5-10.1); CHLORIDE - SERUM 111 mmol/L (98-107); CREATININE - SERUM 0.7 mg/dL (0.6-1.3); GLUCOSE 104 mg/dL (74-106); POTASSIUM - SERUM 3.2 mmol/L (3.5-5.1); PROTEIN - SERUM 5.3 g/dL (6.4-8.2); SODIUM 143 mmol/L (136-145); eGFR NON AFRICAN AMERICAN > 90 mL/min (90-120)
[2020-07-14 06:10] LABS: CALC OSMOLALITY 282 mosm/kg (275-300); CREATINE KINASE 6310 UL (21-215); UREA NITROGEN 7 mg/dL (7-18)
[2020-07-14 06:12] LABS: CKMB 13.4 U/L (0.0-3.6)
--- NOTE | 2020-07-14 07:30 | NUR ---
INITIAL ROUDNS- PT RESTING COMFORTABLY IN BED WITH EYES CLOSED, EASILY AROUSES TO VOICE. NAD NOTED, CALL LIGHT IN REACH, WILL CONTINUE PLAN OF CARE.
[2020-07-14 08:20] VITALS: BP 114/55
--- NOTE | 2020-07-14 08:54 | NUR ---
AM MEDS GIVEN AT THIS TIME. ALSO GAVE PERCOCET FOR PAIN LEVEL OF 10/10. PT A/O X4, RESP EVEN AND NONLABORED ON RA. RT AND LT GROIN WITH NO S/S OF HEMATOMA. RT AC IV INFUSING NS AT 125CC/HR. SB-54 ON TELE. PT DENIES ANY OTHER NEEDS AT THIS TIME. CALL LIGHT IN REACH.
[2020-07-14 12:32] VITALS: BP 123/61
[2020-07-14 15:50] VITALS: BP 131/79
--- NOTE | 2020-07-14 17:41 | NUR ---
IV LEAKING, D/C IV WITH CATHETER TIP INTACT. X2 ATTEMPT TO START NEW IV, WITH NO SUCCESS, CALLED ICU TO SEE IF A NURSE CAN COME START IV.
[2020-07-14] MEDS ORDERED: PERCOCET 10-321 EAC1 PO (18:01)
--- NOTE | 2020-07-14 18:13 | NUR ---
PERCOCET GIVEN FOR PAIN LEVEL OF 10/10. ALSO CALLED BOX INSPECTOR EKATERINA TO SEE IF SHE CAN COME START NEW IV SINCE ICU AND ER ARE UNABLE TO. EKATERINA STATED THAT EITHER HER OR THE ONCOMING HS WILL COME TRY TO START IV.
[2020-07-14 20:30] VITALS: BP 132/59
--- NOTE | 2020-07-14 20:39 | NUR ---
SPOKE WITH EKATERINA HANSEN-ER, TO SEE IF SHE COULD START IV, WAS TOLD SHE WOULD TRY SOON SHE COULD
--- NOTE | 2020-07-14 21:45 | NUR ---
EKATERINA HANSEN FROM ER RESITED 22G.IV TO L.UPPER ARM
[2020-07-15 01:57] VITALS: BP 127/78
[2020-07-15 06:14] VITALS: BP 122/69
--- NOTE | 2020-07-15 07:21 | NUR ---
INITIAL ROUNDS- PT RESTING COMFORTABLY IN BED, WITH EYES CLOSED. RESP EVEN AND NONLABORED ON RA. NAD NOTED, CALL LIGHT IN REACH.
[2020-07-15 07:26] LABS: BASOPHILS 0.3 % (0-2); EOSINOPHILS 3.4 % (0-7); HEMATOCRIT 36.2 % (36.0-48.0); HEMOGLOBIN 11.6 g/dL (12-16); IMMATURE GRANULOCYTES 0.1 % (0-5); LYMPHOCYTE ABS# 1.53 10x3/uL (1.18-3.74); LYMPHOCYTES 20.7 % (15-50); MCH 29.5 pg (26.0-34.0); MCV 92.1 fL (80.0-100.0); MEAN PLATELET VOLUME 12.7 fL (7.4-10.4); MONOCYTES 8.3 % (2-11); NEUTROPHIL ABS# 4.97 10x3/uL (1.56-6.13); NEUTROPHILS 67.2 % (40-80); PLATELET COUNT 175 10x3/uL (130-400); RBC 3.93 10x6/uL (4.00-5.40); RDW 15.7 % (11.5-14.5); WBC 7.4 10x3/uL (4.8-10.8)
[2020-07-15 07:50] LABS: ALBUMIN 2.7 g/dL (3.4-5.0); ALKALINE PHOSPHATASE 61 U/L (30-120); CALCIUM 7.9 mg/dL (8.5-10.1); CARBON DIOXIDE 21.8 mmol/L (21.0-32.0); CHLORIDE - SERUM 109 mmol/L (98-107); CREATININE - SERUM 0.6 mg/dL (0.6-1.3); GLUCOSE 99 mg/dL (74-106); POTASSIUM - SERUM 3.4 mmol/L (3.5-5.1); PROTEIN - SERUM 5.4 g/dL (6.4-8.2); SODIUM 143 mmol/L (136-145); eGFR NON AFRICAN AMERICAN > 90 mL/min (90-120)
[2020-07-15 07:52] LABS: ALT (SGPT) 30 U/L (10-68); CALC OSMOLALITY 281 mosm/kg (275-300); CREATINE KINASE 8387 UL (21-215); UREA NITROGEN 5 mg/dL (7-18)
[2020-07-15 08:13] LABS: CKMB 4.8 U/L (0.0-3.6)
[2020-07-15 08:26] VITALS: BP 124/76
[2020-07-15 08:40] LABS: ERYTHROCYTE SEDIMENTATION RATE 11 mm/hr (0-20)
--- NOTE | 2020-07-15 08:42 | NUR ---
AM MEDS GIVEN AT THIS TIME, ALSO GAVE PERCOCET FOR PAIN LEVEL OF 9/10. AND 40MEQ OF K FOR LOW K OF 3.4 PT A/O X4, RESP EVEN AND NONLABORED ON RA. LT UPPER ARM INFUSING NS AT 75CC/HR. SB-56 ON TELE. RT GROIN DRESSING CDI. SCD TO LT LEG. PT DENIES ANY OTHER NEEDS AT THIS TIME. CALL LIGHT IN REACH, WILL CONTINUE PLAN OF CARE.
[2020-07-15 13:21] VITALS: BP 140/70
--- NOTE | 2020-07-15 16:04 | NUR ---
NEW BAG OF IV FLUIDS HUNG AT THIS TIME. PT RESTING COMFORTABLY IN BED, DENIES ANY NEEDS AT THIS TIME. CALL LIGHT IN REACH.
[2020-07-15 16:16] VITALS: BP 145/79
--- NOTE | 2020-07-15 17:45 | NUR ---
PT CRYING, STATING THAT SHE NEEDS TO LEAVE NOW, HAS FAMILY EMERGENCY. INFORMED HER THAT IF SHE LEAVES SHE IS LEAVING AMA, PT UNDERSTANDS, SIGNED AMA FORM, D/C LT UPPER ARM IV WITH CATHETER TIP INTACT. HEART MONITOR REMOVED AND TAKEN TO INTERNET DESIGNER. NOTIFIED DR. CARVAJAL. PT LEFT UNIT VIA AMBULATORY WITH ALL BELONGINGS.
== END 2020-07-15 17:50 | disposition left against medical advice (07) | DRG 557 ==
LOC: D.ER 15:58 → D.M2 19:59
PROVIDERS: Emergency Medicine; Family Medicine; Internal Medicine Cardiovascular Disease; ADMIT Family Medicine; ATTEND Family Medicine
PROC: B2151ZZ Fluoroscopy of Left Heart using Low Osmolar Contrast (ICD-10-PCS; 2020-07-13)
PROC: 4A023N7 Measurement of Cardiac Sampling and Pressure, Left Heart, Percutaneous Approach (ICD-10-PCS; 2020-07-13)
PROC: B2111ZZ Fluoroscopy of Multiple Coronary Arteries using Low Osmolar Contrast (ICD-10-PCS; principal; 2020-07-13 09:29)
DX: M62.82 Rhabdomyolysis (principal); I21.A1 Myocardial infarction type 2; I73.9 Peripheral vascular disease, unspecified; J44.9 Chronic obstructive pulmonary disease, unspecified; K52.9 Noninfective gastroenteritis and colitis, unspecified; I95.9 Hypotension, unspecified; F43.10 Post-traumatic stress disorder, unspecified; E86.0 Dehydration; F10.10 Alcohol abuse, uncomplicated; F12.90 Cannabis use, unspecified, uncomplicated; Z89.511 Acquired absence of right leg below knee; Z86.718 Personal history of other venous thrombosis and embolism; Z72.0 Tobacco use; F20.9 Schizophrenia, unspecified

== ENCOUNTER 2020-07-18 11:21 | Inpatient (IN) | payer MEDICARE, MEDICAID ==
[2020-07-18] VITALS (7 sets, daily range): BP systolic 110–142; BP diastolic 48–79
[~2020-07-18] VITALS: Ht 170.2 cm; Wt 65.5 kg
[~2020-07-18 11:21] MED LIST changes: +PERCOCET 10-321 EAC1 PO
[2020-07-18 11:45] LABS: BASOPHILS 0.4 % (0-2); EOSINOPHILS 2.9 % (0-7); HEMATOCRIT 42.4 % (36.0-48.0); HEMOGLOBIN 13.9 g/dL (12-16); IMMATURE GRANULOCYTES 0.2 % (0-5); LYMPHOCYTE ABS# 1.84 10x3/uL (1.18-3.74); LYMPHOCYTES 22.9 % (15-50); MCH 30.3 pg (26.0-34.0); MCHC 32.8 g/dL (31.0-37.0); MCV 92.4 fL (80.0-100.0); MEAN PLATELET VOLUME 11.5 fL (7.4-10.4); MONOCYTES 7.3 % (2-11); NEUTROPHIL ABS# 5.34 10x3/uL (1.56-6.13); NEUTROPHILS 66.3 % (40-80); RBC 4.59 10x6/uL (4.00-5.40); RDW 15.8 % (11.5-14.5); WBC 8.1 10x3/uL (4.8-10.8)
[2020-07-18 11:50] LABS: PLATELET COUNT 256 10x3/uL (130-400)
[2020-07-18 11:58] LABS: CALC OSMOLALITY 282 mosm/kg (275-300); CALCIUM 9.1 mg/dL (8.5-10.1); CARBON DIOXIDE 25.3 mmol/L (21.0-32.0); CHLORIDE - SERUM 104 mmol/L (98-107); CREATININE - SERUM 0.8 mg/dL (0.6-1.3); GLUCOSE 112 mg/dL (74-106); POTASSIUM - SERUM 3.2 mmol/L (3.5-5.1); SODIUM 143 mmol/L (136-145); UREA NITROGEN 5 mg/dL (7-18); eGFR NON AFRICAN AMERICAN 81 mL/min (90-120)
[2020-07-18 12:21] LABS: ALKALINE PHOSPHATASE 88 U/L (30-120); ALT (SGPT) 43 U/L (10-68); BILIRUBIN - TOTAL 0.18 mg/dL (0.2-1.3); PROTEIN - SERUM 7.2 g/dL (6.4-8.2); THYROID STIMULATING HORMONE 3.98 uIU/mL (0.36-3.74)
[2020-07-18 12:22] LABS: CREATINE KINASE 1673 UL (21-215)
[2020-07-18 12:23] LABS: TROPONIN-I 0.065 ng/mL (0.000-0.060)
[2020-07-18 12:29] LABS: INR 1.1 (0.85-1.17); PROTIME 13.1 SECONDS (11.6-15.0)
[2020-07-18 12:30] LABS: APTT 28.6 SECONDS (22.8-39.4)
[2020-07-18 13:34] LABS: UDS - AMPHET NEGATIVE QUAL (NEGATIVE); UDS - BARB NEGATIVE QUAL (NEGATIVE); UDS - BENZO NEGATIVE QUAL (NEGATIVE); UDS - COCAINE NEGATIVE QUAL (NEGATIVE); UDS - OPIATE POSITIVE QUAL (NEGATIVE); UDS - PCP NEGATIVE QUAL (NEGATIVE); UDS - THC POSITIVE QUAL (NEGATIVE)
[2020-07-18 13:49] LABS: BILIRUBIN NEGATIVE (NEGATIVE); KETONE NEGATIVE (NEGATIVE); NITRITE NEGATIVE (NEGATIVE); UROBILINOGEN NORMAL mg/dL (< 2)
[2020-07-18] MEDS ORDERED: MINIPRESS 5 MG C5 MG PO (19:32)
[2020-07-18] MEDS ORDERED: OMNICEF300 MG (19:33)
[2020-07-18] MEDS ORDERED: ATIVAN2 MG (19:33)
[2020-07-18] MEDS ORDERED: TRAZODONE HCL150 MG PO (19:33)
[2020-07-18] MEDS ORDERED: PERCOCET 10-321 EAC1 ×2 (19:33→19:34)
[2020-07-18] MEDS ORDERED: PLAVIX75 MG PO (19:34)
[2020-07-18] MEDS ORDERED: HYDROCODON-ACE1 EAC7 (19:34)
[2020-07-18] MEDS ORDERED: PREDNISONE20 MG (19:34)
[2020-07-18 22:45] LABS: CKMB 0.9 U/L (0.0-3.6); CREATINE KINASE 882 UL (21-215); TROPONIN-I 0.044 ng/mL (0.000-0.060)
--- NOTE | 2020-07-19 02:34 | NUR ---
RECEIVED ER REPORT FOR PT. SHE WAS ADMITED WITH STROKE LIKE SYMPTOMS. PT REQUEST FENTANYL FOR PAIN SHE WAS EXPLAINED THAT WE CAN GET IV FENTANYL IN MED/SURG. PER MD HU AND DAWN PT CAN HAVE NORCO PRN. WILL CONT TO MONITOR.
[2020-07-19 04:00] VITALS: BP 120/48
[2020-07-19 04:29] VITALS: BP 113/48; BMI 22.6
--- NOTE | 2020-07-19 06:35 | NUR ---
I have reviewed this patient and I concur with the Shift Assessment completed by the Licensed Practical Nurse today this shift.
[2020-07-19 06:54] LABS: BASOPHILS 0.6 % (0-2); EOSINOPHILS 5.4 % (0-7); HEMATOCRIT 38.8 % (36.0-48.0); HEMOGLOBIN 12.1 g/dL (12-16); IMMATURE GRANULOCYTES 0.2 % (0-5); LYMPHOCYTES 43.7 % (15-50); MCH 29.7 pg (26.0-34.0); MCHC 31.2 g/dL (31.0-37.0); MEAN PLATELET VOLUME 13.3 fL (7.4-10.4); MONOCYTES 13.3 % (2-11); NEUTROPHIL ABS# 1.85 10x3/uL (1.56-6.13); NEUTROPHILS 36.8 % (40-80); PLATELET COUNT 263 10x3/uL (130-400); RBC 4.07 10x6/uL (4.00-5.40)
[2020-07-19 06:57] LABS: MCV 95.3 fL (80.0-100.0)
[2020-07-19 07:20] LABS: ALBUMIN 3.1 g/dL (3.4-5.0); ALKALINE PHOSPHATASE 79 U/L (30-120); BILIRUBIN - TOTAL 0.19 mg/dL (0.2-1.3); CALC OSMOLALITY 277 mosm/kg (275-300); CALCIUM 8.4 mg/dL (8.5-10.1); CARBON DIOXIDE 24.9 mmol/L (21.0-32.0); CHLORIDE - SERUM 107 mmol/L (98-107); CHOL - HDL RATIO 3.6 ratio (2.3-4.1); CHOLESTEROL, TOTAL 162 mg/dL (0-200); CKMB 0.7 U/L (0.0-3.6); CREATININE - SERUM 0.7 mg/dL (0.6-1.3); GLUCOSE 98 mg/dL (74-106); HDL CHOLESTEROL 45 mg/dL (32-96); LDL CHOLESTEROL 95 mg/dL (0-100); LDL-HDL RATIO 2.1 ratio (1.5-3.5); PHOSPHOROUS 3.7 mg/dL (2.5-4.9); POTASSIUM - SERUM 3.2 mmol/L (3.5-5.1); PROTEIN - SERUM 6.2 g/dL (6.4-8.2); SODIUM 141 mmol/L (136-145); THYROID STIMULATING HORMONE 2.07 uIU/mL (0.36-3.74); TRIGLYCERIDE 111 mg/dL (30-200); TROPONIN-I 0.035 ng/mL (0.000-0.060); UREA NITROGEN 5 mg/dL (7-18); eGFR NON AFRICAN AMERICAN > 90 mL/min (90-120)
[2020-07-19 07:21] LABS: ALT (SGPT) 32 U/L (10-68); CREATINE KINASE 562 UL (21-215)
[2020-07-19 07:42] LABS: APTT 29.7 SECONDS (22.8-39.4); INR 1.1 (0.85-1.17); PROTIME 13.2 SECONDS (11.6-15.0)
[2020-07-19 08:22] VITALS: BP 91/58
[2020-07-19 09:55] VITALS: Ht 170.2 cm; Wt 65.5 kg
[2020-07-19 10:16] LABS: CKMB 0.7 U/L (0.0-3.6); CREATINE KINASE 540 UL (21-215); TROPONIN-I 0.029 ng/mL (0.000-0.060)
[2020-07-19 12:43] VITALS: BP 145/83
[2020-07-19] MEDS ORDERED: NICODERM CQ1 EAC3 TRANSDERM (15:43)
[2020-07-19] MEDS ORDERED: LIPITOR20 MG PO (15:43)
[2020-07-19 16:54] VITALS: BP 146/88
== END 2020-07-19 17:40 | disposition home or self-care (01) | DRG 69 ==
LOC: D.ER 11:21 → D.MS 15:57
PROVIDERS: Family Medicine; ADMIT Emergency Medicine; ATTEND Emergency Medicine
DX: G45.9 Transient cerebral ischemic attack, unspecified (principal); F17.203 Nicotine dependence unspecified, with withdrawal; M62.82 Rhabdomyolysis; E87.6 Hypokalemia; I73.9 Peripheral vascular disease, unspecified; Z79.01 Long term (current) use of anticoagulants; M19.90 Unspecified osteoarthritis, unspecified site; J44.9 Chronic obstructive pulmonary disease, unspecified; G89.29 Other chronic pain

== ENCOUNTER 2020-09-27 07:10 | Emergency (ER) | payer MEDICARE, MEDICAID ==
[~2020-09-27] VITALS: Ht 170.2 cm; Wt 61.4 kg
[~2020-09-27 07:10] MED LIST changes: +ATIVAN2 MG; +HYDROCODON-ACE1 EAC7; +LIPITOR20 MG PO; +MINIPRESS 5 MG C5 MG PO; +NICODERM CQ1 EAC3 TRANSDERM; +OMNICEF300 MG; +PERCOCET 10-321 EAC1; +PREDNISONE20 MG; +TRAZODONE HCL150 MG PO
[2020-09-27 07:15] VITALS: Ht 170.2 cm; Wt 61.4 kg
[2020-09-27 07:52] LABS: CALC OSMOLALITY 278 mosm/kg (275-300); CARBON DIOXIDE 24.7 mmol/L (21.0-32.0); CHLORIDE - SERUM 102 mmol/L (98-107); CREATININE - SERUM 0.7 mg/dL (0.6-1.3); GLUCOSE 134 mg/dL (74-106); POTASSIUM - SERUM 3.5 mmol/L (3.5-5.1); SODIUM 138 mmol/L (136-145); UREA NITROGEN 14 mg/dL (7-18); eGFR NON AFRICAN AMERICAN > 90 mL/min (90-120)
[2020-09-27 07:59] LABS: BASOPHILS 0.2 % (0-2); EOSINOPHILS 0 % (0-7); HEMATOCRIT 40.9 % (36.0-48.0); HEMOGLOBIN 13.7 g/dL (12-16); LYMPHOCYTES 13.4 % (15-50); MCH 29.9 pg (26.0-34.0); MCHC 33.4 g/dL (31.0-37.0); MCV 89.7 fL (80.0-100.0); MEAN PLATELET VOLUME 11.2 fL (7.4-10.4); MONOCYTES 5.3 % (2-11); NEUTROPHILS 81.1 % (40-80); PLATELET COUNT 216 10x3/uL (130-400); RBC 4.56 10x6/uL (4.00-5.40); RDW 14.5 % (11.5-14.5); WBC 9.8 10x3/uL (4.8-10.8)
[2020-09-27 08:02] LABS: ALKALINE PHOSPHATASE 74 U/L (30-120); ALT (SGPT) 14 U/L (10-68); BILIRUBIN - TOTAL 0.28 mg/dL (0.2-1.3); LIPASE 58 U/L (73-393); PROTEIN - SERUM 7.6 g/dL (6.4-8.2); TROPONIN-I < 0.017 ng/mL (0.000-0.060)
[2020-09-27] MEDS ORDERED: LOMOTIL 2.5-0.1 EAC1 PO (08:30)
[2020-09-27] MEDS ORDERED: PHENERGAN25 M1 PO (08:30)
[2020-09-27 09:42] LABS: BILIRUBIN NEGATIVE (NEGATIVE); KETONE 1+ mg/dL (< 1+); NITRITE NEGATIVE (NEGATIVE); PH 6.5 (5.0-8.0); SQUAMOUS EPITHELIAL <1 HPF (0-4); UROBILINOGEN NORMAL mg/dL (< 2); WHITE CELLS - URINE 1 HPF (0-4)
[2020-09-27 13:08] VITALS: BP 115/67
== END 2020-09-27 13:11 | disposition home or self-care (01) ==
LOC: D.ER 07:10
PROVIDERS: Emergency Medicine
DX: A08.4 Viral intestinal infection, unspecified (principal); E86.0 Dehydration; Z86.73 Personal history of transient ischemic attack (TIA), and cerebral infarction without residual deficits; J44.9 Chronic obstructive pulmonary disease, unspecified; Z79.01 Long term (current) use of anticoagulants